=== PATIENT | male | born 1960 | race Caucasian/White ===

== ENCOUNTER → 2018-10-09 08:05 | Outpatient (CLI) | payer OTHER, SELFPAY ==
--- NOTE | 2018-10-09 09:22 | PM.TREADMILL ---
Cardiac Stress Test Report Referral & Results Date Patient Seen: 10/09/18 Requesting provider: Guy Hamilton Indication: Dyspnea on exertion Rest ECG: Unremarkable Procedure Note: Today following both written and verbal informed consent, the patient was exercised according to a standard Harshil protocol. The patient exercised for a total of 7 minutes 47 seconds achieving a maximum heart rate of 130. Patient's maximum systolic blood pressure was 168. This was an estimated 10.1 MET's. There are no ST-T segment changes identified Normal heart rate and blood pressure response to exercise Functional aerobic impairment rated about 10% of the sedentary scale Normal oxygen saturations throughout No dysrhythmia Impression: No evidence of ischemia. Somewhat limited exercise capacity. No hypoxia identified. Please note: Actual ECG tracings can be found in the PACS system.
== END ==
PROVIDERS: Visit Provider Student in an Organized Health Care Education/Training Program
DX: R06.09 Other forms of dyspnea (principal)
CPT/HCPCS: 93016; 93017; 93018